=== PATIENT | male | born 1990 | race Caucasian/White ===

== ENCOUNTER 2016-10-09 09:59 | Emergency (ER) | payer OTHER | END 2016-10-09 12:08 | disposition home or self-care (01) | LOC: ER 09:59 | DX: T78.49XA Other allergy, initial encounter (principal); G47.30 Sleep apnea, unspecified; I10 Essential (primary) hypertension; F31.9 Bipolar disorder, unspecified; K21.9 Gastro-esophageal reflux disease without esophagitis; Z87.442 Personal history of urinary calculi; Z87.891 Personal history of nicotine dependence; Z88.8 Allergy status to other drugs, medicaments and biological substances | CPT/HCPCS: 36415 ==